=== PATIENT | male | born 2000 | race Caucasian/White ===

== ENCOUNTER 2024-08-12 18:36 | Emergency (ER) | payer BC, SELFPAY ==
--- NOTE | ~2024-08-12 | XR_ITS ---
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 COMPARISON: None available. FINDINGS: Normal mineralization. No fracture or dislocation. No lytic or blastic lesion. Joint space s and physes are maintained. No erosion or periosteal change. Soft tissue laceration at the distal ri ght second finger. IMPRESSION: No acute osseous finding in the right second digit. Reviewed, dictated and finalized at location K.
--- NOTE | 2024-08-12 18:44 | ED.WOUNDLAC ---
HPI - Wound/Laceration General Chief Complaint: Wound/Laceration Stated Complaint: RT Finger Cut Source: patient Mode of arrival: ambulatory Limitations: no limitations History of Present Illness HPI narrative: [age] year old male presented for complaint of a laceration to the end of the right index finger sustained just prior to arrival. Reports some skin is gone and the nail is cut. Active bleeding, wrapped in towel. He states he attempted to clean off the blade of an immersion wine blender when he accidentally turned it on as well. No cleaning or treatment prior to arrival. Unsure of last tetanus. Left-hand dominant. Related Data Allergies Allergy/AdvReac Type Severity Reaction Status Date / Time No Known Allergies Allergy Unverified 12/09/17 19:44 Review of Systems Review of Systems: CONSTITUTIONAL: Denies body aches, fever, chills, or sweats. CARDIOVASCULAR: Denies chest pain SKIN: Reports laceration to right index finger MUSCULOSKELETAL: Denies decreased range of motion to the joint right 2nd digit NEUROLOGIC: Denies numbness, tingling, or weakness. PMFSH Comments At time of signature, I have reviewed and agree with nursing past medical, surgical, social and family history unless otherwise noted. Please see nursing chart for further information. There is no relevant family history pertinent to the presenting complaint Exam Narrative: GENERAL: Well-appearing ENT: Mucous membranes moist. Oropharynx without edema, erythema or lesions. CHEST: Clear to auscultation. HEART: Regular rate and rhythm. SKIN: Warm, dry. Right 2nd digit distal phalanx with skin avulsion between the DIP and base of nailbed approx 1cm, active bleeding. Irregular laceration 1.5cm to dorsal aspect of distal phalanx. 0.5cm laceration to radial aspect of distal phalanx. Scattered superficial lacerations to distal phalanx. Nail with superficial scattered lacerations, no active bleeding or loose nail. Full ROM at DIP. CMS intact. NEURO: Alert and oriented x3. Course Course Emergency Course: Patient is aware of diagnosis, understands and agrees to treatment plan. Anticipatory guidance given. Patient agrees to follow-up as directed and is aware of reasons to seek care at the emergency department. Portions of this record may have been created with voice recognition software Level of Care: Express Care Visit Vital Signs Vital signs: Reviewed Procedures Laceration Right 2nd digit: Date: 10/01/24 Size (cm): 1.5 Description: irregular and clean Depth: simple, single layer Local Anesthetic: lidocaine 1% Amount of anesthesia used (mL): 2 Pre-repair: irrigated (100mL sterile water) ====== Skin Level ====== Skin layer closed with: nylon Size (cm): 6-0 Number of sutures: 4 Technique: simple, interrupted ====== Subcutaneous Layer ====== ====== Muscle Layer ====== ====== Tendon Layer ====== Dressing: The procedure and its alternatives were reviewed with patient. Risks were reviewed with patient including infection and damage to nearby structures. Patient provided verbal informed consent. The patient was positioned appropriately. Sterile drapes applied to maintain sterile field. Wound was explored for abnormalities including infection and foreign bodies. Three Sutures placed to dorsal laceration of digit, One suture placed to the radial aspect of distal phalanx with wound edges approximated. Surgicel required over the avulsion between DIP and nailbed. Patient tolerated well, no complications. Dressing and splint applied per RN. MDM - Wound/Laceration MDM Narrative Medical decision making narrative: Discussed physical exam findings, negative xray. Patient tolerated suture placement. Reviewed prescriptions. Tetanus updated today. Advised supportive measures and signs/symptoms to go to the ER. Pt is appropriate for outpt treatme
[2024-08-12 18:45] VITALS: BP 125/85; PULSE 84; RESP 18; TEMP 36; O2SAT 100
[2024-08-12] MEDS: LIDOCAINE HCL 1% LOCAL INJ 2 ML AMPUL 6 ML INFILTRATE (19:04)
[2024-08-12] MEDS: TETANUS,DIPHTHERIA,AC PERTUSSIS ADULT (0.5 ML) BOOSTRIX IM (19:38)
== END 2024-08-12 19:58 | disposition home or self-care (01) ==
PROVIDERS: Emergency Provider Nurse Practitioner Family; PCP Pediatrics
DX: S61.310A Laceration without foreign body of right index finger with damage to nail, initial encounter (principal); W29.0XXA Contact with powered kitchen appliance, initial encounter; Z23 Encounter for immunization
CPT/HCPCS: 12001; 73140; 90471; 90715; 99203; G0463; J2003